=== PATIENT | female | born 1950 | race Caucasian/White ===

== ENCOUNTER 2018-04-29 17:51 | Emergency (ER) | payer MEDICARE, SELFPAY ==
[2018-04-29 17:53] VITALS: BP 116/81; PULSE 86; RESP 12; TEMP 36.8; O2SAT 98
--- NOTE | 2018-04-29 18:04 | DI.REPORT_ITS ---
SYMPTOM/DIAGNOSIS: PAIN OVER TAILBONE SACRUM AND COCCYX: There is mild overlying stool and bowel gas. No fracture is identified. Lateral view is slightly oblique. The disc spaces are well maintained. The S-I joints appear intact. IMPRESSION: No acute abnormality.
--- NOTE | 2018-04-29 18:05 | ED.GENADUL ---
Disposition Clinical Impression: Coccyx pain, Muscle spasm Disposition: HOME Condition: Stable Instructions: Muscle Spasm (ED) Additional Instructions: follow up with your primary care provider if the pain continues this week. Your xrays did not show any broken bones if you have fevers, inability to urinate or abdominal pain return to the emergency department Prescriptions: Cyclobenzaprine [Flexeril] 10 mg PO Q8H PRN PRN #20 tab PRN Reason: Medical Decision Making - Radiology Data Radiology results: report reviewed, image reviewed - Medical Decision Making pt here with reported mechanical fall over 2 weeks ago and pain in coccyx region. Could be fracture, consution, muscle spasm. Will obtain xray to eval for fx. Has no findings on exam to suggest cauda equina, no fevers or chills to suggest SEA and pain started after a fall. No lumbar pain so do not feel these require imaging at this time xray shows no acute findings, stable neuro exam. She feels better with flexeril so suspect msucle spasm vs strain. Will have her f/u with pcp this week if pain continues and return precautions given - Differential Diagnosis muscle spasm, contusion, strain History of Present Illness - General Chief complaint: Nk/Back Pain Stated complaint: UNKNOWN Time Seen by Provider: 04/29/18 17:52 Source: patient Mode of arrival: ambulatory Limitations: no limitations - History of Present Illness Initial comments: 67 yo female comes in with pain over her coccyx. She states she tripped over 2 weeks ago and landed on her buttocks, she has had pain since so came here for an eval. Denies difficulty urinating, sensation changes, abdominal pain, fevers. She has pain with palpation over the coccyx with no palpable deformities, no midline lumbar pain, no saddle anesthesia Complaint: coccyx pain Onset/Timin -: week(s) Location: back Radiation: non-radiation Severity scale (1-10): 7 Quality: aching Consistency: constant Improves with: none Worsens with: none Treatments Prior to Arrival: NSAID - Related Data ClonazePAM [KlonoPIN] 0.5 mg PO BID 04/18/13 Loratadine/Pseudoephedrine [Claritin-D 12 Hour Tablet] 1 tab PO PRN PRN 04/18/13 Albuterol [Ventolin Hfa] 2 puff IH Q4H PRN PRN 04/19/17 Fluticasone Propionate [Flonase Allergy Relief] 9.9 ml NS DAILY 07/07/17 Cyclobenzaprine [Flexeril] 10 mg PO Q8H PRN PRN #20 tab 04/29/18 Ibuprofen 200 mg PO DAILY PRN 04/29/18 Allergies Allergy/AdvReac Type Severity Reaction Status Date / Time acetaminophen [From Tylenol] AdvReac heart acts Unverified 04/29/18 18:00 up naproxen sodium [From Aleve] AdvReac palpatation Unverified 04/29/18 18:00 s NSAIDS (Non-Steroidal AdvReac heart acts Unverified 04/29/18 18:00 Anti-Inflamma up oxycodone [Oxycodone] AdvReac palpatation Unverified 04/29/18 18:00 face flushed propoxyphene HCl AdvReac palpatation Unverified 04/29/18 18:00 [From Darvon] s Review of Systems Constitutional: denies: chills, fever Respiratory: denies: shortness of breath Cardiovascular: denies: chest pain Gastrointestinal: denies: abdominal pain, nausea, vomiting Skin: denies: rash Neurological: denies: headache Comment: All other systems reviewed and negative Past Medical History - Past Medical History Medical history: arthritis, asthma Surgical history: non-contributory - Social History Alcohol use: none Drug use: none General Exam - General Limitations: no limitations General appearance: alert, in no apparent distress - Head Head exam: Present: atraumatic - Eye Eye exam: Present: normal apperance - ENT ENT exam: Present: mucous membranes moist - Neck Neck exam: Present: normal inspection. Absent: tenderness - Respiratory Respiratory exam: Absent: respiratory distress - Cardiovascular Cardiovascular Exam: Present: regular rate - GI/Abdominal GI/Abdominal exam: Present: soft. Absent: tenderness - Back Exam Back exam: Absent: vertebral tenderness - Neurological Exam Neurological exam: Present: alert, oriented X3, reflexes normal. Absent: motor sensory deficit - Psychiatric Psychiatric exam: Present: normal affect - Skin Skin exam: Present: erythema Course Vital Signs - 24 hr 04/29/18 17:53 Temperature 98.2 F Pulse 86 Respiratory 12 Rate Blood Pressure 116/81 Pulse Oximetry 98
[2018-04-29] MEDS: Cyclobenzaprine 10 MG TAB PO ×2 (18:08→18:54)
--- NOTE | 2018-04-29 18:40 | DI.VRAD_ITS ---
EXAM: XR Sacrum and Coccyx, 2 or more Views CLINICAL HISTORY: 67 years old, female; Pain; Pain in coccyx area; Patient HX: Pain over tailbone TECHNIQUE: Frontal and lateral views of the sacrum and coccyx. COMPARISON: No relevant prior studies available. FINDINGS: Sacrum/coccyx: Unremarkable as visualized. No acute fracture. Vertebrae: Visualized lumbar vertebrae are unremarkable. Soft tissues: Unremarkable. IMPRESSION: Normal sacrum and coccyx x-rays. Dictated and Authenticated by: Jon Sim MD. Ordering:LORETTA LIM MD
--- NOTE | 2018-05-01 09:26 | CMPROGNOTE_ITS ---
Care Management Progress Note 05/01-Dr. Medel requested assistance with a PCP (Jamal) f/u in 1-2 weeks for back pain. Referral faxed to [facility] this am.
== END 2018-04-29 18:56 | disposition home or self-care (01) ==
PROVIDERS: Emergency Provider Emergency Medicine; PCP Internal Medicine
DX: M62.830 Muscle spasm of back (principal); M54.5 Low back pain
CPT/HCPCS: 72220; 99283 ×2

== ENCOUNTER 2018-08-16 14:02 | Outpatient (REF) | payer MEDICARE, SELFPAY ==
[2018-08-17 14:45] LABS: Chlamydia Result Negative; GC Result Negative; Specimen Description CERVIX
== END 2018-08-16 14:22 ==
LOC: LBN 14:02
PROVIDERS: PCP Internal Medicine; Visit Provider Obstetrics & Gynecology
DX: R30.0 Dysuria (principal); N89.8 Other specified noninflammatory disorders of vagina; Z11.3 Encounter for screening for infections with a predominantly sexual mode of transmission
CPT/HCPCS: 87491; 87591; 87086

== ENCOUNTER 2019-07-13 11:43 | Outpatient (REF) | payer MEDICARE, SELFPAY ==
[2019-07-13 20:42] LABS: HCT 43.2 % (36.0-46.0); HGB 14.5 g/dL (12.0-15.5); Mean Corp. HGB Concentration 33.6 g/dL (32.0-36.0); Mean Corpuscular Volume 89.4 fL (80-95); Mean Platelet Volume 8.8 fL (8.0-11.0); Platelet Count 322 x1000/uL (130-400); RBC 4.83 m/cumm (4.00-5.20); RBC Distribution Width 12.8 % (11.7-14.6); White Blood Cell Count 4.16 k/cumm (4.4-10.8)
[2019-07-13 21:03] LABS: Anion Gap 8.3 mmol/L (3-11); BUN 10 mg/dL (7-18); CO2 28.7 mmol/L (21.0-32.0); CREATININE 0.68 mg/dL (0.55-1.02); Calcium 9.3 mg/dL (8.5-10.1); Calculated LDL 167 mg/dL; Chloride 104 mmol/L (98-107); Cholesterol 276 mg/dL (50-200); Glucose 90 mg/dL (70-100); HDL Cholesterol 93 mg/dL (40-60); Magnesium 2.2 mg/dL (1.8-2.4); Potassium 4.5 mmol/L (3.5-5.1); Sodium 141 mmol/L (136-145); Triglyceride 80 mg/dL (30-150)
[2019-07-15 16:45] LABS: T3, Total 117 ng/dl (97-169)
[2019-07-16 10:48] LABS: FREE T4 0.82 ng/dL (0.76-1.46)
== END 2019-07-13 12:03 ==
LOC: NCHCN 11:43
PROVIDERS: PCP Internal Medicine; Visit Provider Internal Medicine
DX: R53.83 Other fatigue (principal); E78.79 Other disorders of bile acid and cholesterol metabolism; J30.89 Other allergic rhinitis; R94.6 Abnormal results of thyroid function studies
CPT/HCPCS: 80048; 80061; 85027; 83735; 84439; 84443; 84480

== ENCOUNTER 2019-10-09 09:20 | Emergency (ER) | payer MEDICARE, SELFPAY ==
[2019-10-09] VITALS (12 sets, daily range): BP systolic 138–139; BP diastolic 72–83; PULSE 81–99; RESP 11–24; TEMP 36.9–37.1; O2SAT 97–100
--- NOTE | 2019-10-09 09:48 | DI.RAD_ITS ---
EXAM: XR CHEST 2V PA LATERAL INDICATION: cough, fever, r/o pneumonia. COMPARISON: No exams were available for comparison TECHNIQUE: 2D digital imaging was performed. FINDINGS: The heart is mildly enlarged. The aorta is tortuous. A pulmonary calcification and calcified lymph nodes are consistent with old granulomatous disease. No acute infiltrate, effusion or pulmonary derek a is seen. IMPRESSION: No acute abnormality.
--- NOTE | 2019-10-09 09:52 | W.ED.GENAD ---
Discharge Plan Disposition Patient Disposition: HOME Condition: Improving Discharge Details Chief Complaint: SOB Clinical Impression: Influenza A Primary Care Provider: Simon Berry ED Provider: Lara Weber Home Meds and New Rx's Prescriptions: New oseltamivir [Tamiflu] 75 mg capsule 75 mg PO BID 5 Days Qty: 10 RF: 0 ondansetron HCl [Zofran] 4 mg tablet 4 mg PO Q6H PRN (Reason: nausea and vomiting) Qty: 7 RF: 0 Continued valacyclovir [Valtrex] 500 mg tablet 500 mg PO BID Qty: 12 RF: 0 fluticasone propionate [Flonase Allergy Relief] 9.9 ML spray,suspension 9.9 ml NS DAILY RF: 0 clonazepam 0.5 MG tablet 0.5 mg PO BID RF: 0 Claritin-D 12 Hour 1 EACH tablet extended release 12 hr 1 tab PO PRN PRNRF: 0 albuterol sulfate [Ventolin HFA] 200 PUFF HFA aerosol inhaler 2 puff Inhalation Q4H PRN PRNRF: 0 ibuprofen 200 MG tablet 200 mg PO DAILY PRNRF: 0 cyclobenzaprine 10 MG tablet 10 mg PO Q8H PRN PRNQty: 20 RF: 0 Discharge Instructions Instructions: Influenza (ED) Additional Instructions: Drink plenty of fluids and get plenty of rest. Alternate tylenol and motrin as needed and directed for pain. Follow-up with your primary care doctor in 1 week. Return to the emergency department with any worsening or new concerning symptoms. Discharge Data Discharge Date/Time-TO BE ENTERED AT DEPARTURE: 10/09/19 11:45 Discharge Physician: Lara Weber Medical Decision Making 0590 -- 69-year-old female with a history of asthma, anxiety migraines presents with dry cough, ear pain, sore throat, chest tightness, shortness of breath, headache and body aches for the past 2 days. She states she has been sick with cold-like symptoms since September 21 for which she took 7 tabs of Augmentin left over with some relief of symptoms. She states symptoms return to became much worse yesterday. Admits to feeling feverish and chills but denies any known fever. Vitals within normal limits. Patient appears generally fatigued and uncomfortable but nontoxic. No acute findings on exam. Lungs clear. No meningeal signs. We will obtain a rapid strep, influenza and chest x-ray and give a dose of Toradol, Zofran DuoNeb as well as chest x-ray and reassess. 1035 -- Influenza A positive. Rapid strep negative. Chest x-ray notes pulmonary calcification calcified lymph nodes consistent with old granulomatous disease. Patient is aware of having these findings. Patient felt much better after fluids and meds here. She improved with DuoNeb. We will send home with an inhaler, Tamiflu as well as Zofran. Advised to follow up with the primary care doctor for re-evaluation. Usual and customary return precautions given prior to discharge. Medical Records Medical records reviewed: Yes I reviewed the patient's medical records. Imaging Data Radiologic Study: Radiologist's impression: XR CHEST 2V PA LATERAL INDICATION: cough, fever, r/o pneumonia. COMPARISON: No exams were available for comparison TECHNIQUE: 2D digital imaging was performed. FINDINGS: The heart is mildly enlarged. The aorta is tortuous. A pulmonary calcification and calcified lymph nodes are consistent with old granulomatous disease. No acute infiltrate, effusion or pulmonary edema is seen. IMPRESSION: No acute abnormality. ECG Data Attestation: I personally reviewed and interpreted this ECG (s) as follows: Interpretation: Rate of 80, sinus, no acute ST elevation or depression changes. ME 194. QTc 431. QRS 94. HPI General Mode of arrival: ambulatory. Date/Time Provider Initiated Documentation: 10/09/19 09:20. Limitations to Documentation: no limitations. Information obtained by: patient. History of Present Illness 69 year old F presents to the emergency department with the chief complaint of Dry cough, shortness of breath, chest tightness, ear pain, sore throat, bod, Patient started experiencing this day(s) (2) and it has been constant. No relieving factors improve symptom(s), No exacerbating factors reported . Patient notes chest pain, cough, fever/chills, headaches, loss of appetite, malaise, nausea/vomiting, shortness of breath and weakness. Patient did receive the following treatments prior to arrival, none Related Data Home Medications Medication Instructions Recorded Confirmed Claritin-D 12 Hour 1 tab PO PRN PRN 04/18/13 10/09/19 clonazepam 0.5 mg PO BID 04/18/13 10/09/19 albuterol sulfate [Ventolin HFA] 2 puff INHALATION Q4H PRN PRN 04/19/17 10/09/19 fluticasone propionate [Flonase 9.9 ml NS DAILY 07/07/17 10/09/19 Allergy Relief] cyclobenzaprine 10 mg PO Q8H PRN PRN #20 tab 04/29/18 10/09/19 ibuprofen 200 mg PO DAILY PRN 04/29/18 10/09/19 valacyclovir 500 mg tablet 500 mg PO BID #12 tab 08/16/18 10/09/19 ondansetron HCl [Zofran] 4 mg PO Q6H PRN #7 tab 10/09/19 oseltamivir [Tamiflu] 75 mg PO BID 5 Days #10 cap 10/09/19 Previous Rx's Medication Instructions Recorded cyclobenzaprine 10 mg PO Q8H PRN PRN #20 tab 04/29/18 valacyclovir 500 mg tablet 500 mg PO BID #12 tab 08/16/18 ondansetron HCl [Zofran] 4 mg PO Q6H PRN #7 tab 10/09/19 oseltamivir [Tamiflu] 75 mg PO BID 5 Days #10 cap 10/09/19 Allergies Allergy/AdvReac Type Severity Reaction Status Date / Time acetaminophen [From Tylenol] AdvReac heart acts Unverified 10/09/19 09:25 up naproxen sodium [From Aleve] AdvReac palpatation Unverified 10/09/19 09:25 s NSAIDS (Non-Steroidal AdvReac heart acts Unverified 10/09/19 09:25 Anti-Inflamma up oxycodone [Oxycodone] AdvReac palpatation Unverified 10/09/19 09:25 face flushed propoxyphene HCl AdvReac palpatation Unverified 10/09/19 09:25 [From Darvon] s General Stated Complaint: SOB THA: 3 Review of Systems All systems reviewed & are unremarkable except as noted in HPI and below Constitutional Constitutional: Reports as per HPI, Denies chills and Denies fever(s) Eyes Eyes: Denies blurry vision ENT Ears, Nose, Mouth, and Throat: Denies dizziness, Reports otalgia, Reports sore throat and Denies throat swelling Cardiovascular Cardiovascular: Reports chest pain and Reports dyspnea Respiratory Respiratory: Reports cough and Reports dyspnea Gastrointestinal Gastrointestinal: Denies abdominal pain, Denies diarrhea and Denies vomiting Genitourinary Genitourinary: Denies hematuria and Denies dysuria Musculoskeletal Musculoskeletal: Denies back pain and Denies numbness Integumentary/Breasts Skin/Breast: Denies lesions and Denies rash Neurologic Neurologic: Denies dizziness, Denies focal weakness and Denies numbness Allergic/Immunologic Allergic/Immunologic: Denies throat swelling [facility] Medical History (Updated 10/09/19 @ 10:46 by Lara Weber DO) Anxiety (Chronic) Asthma (Chronic) Migraine (Chronic) Surgical History (Updated 10/09/19 @ 10:11 by Lara Weber DO) H/O section (Chronic) History of bilateral tubal ligation (Acute) Hx of cholecystectomy (Chronic) Social History (Updated 08/16/18 @ 11:31 by Ligia Islas LPN) Smoking/Tobacco Use Status: Never Alcohol Intake: current Drug use: Never Substance use type: does not use Caregiver/Support person: No Foster care: No Household members: family Housing: house Number of Children: 1 Pets and animals: Yes Sexually active: Yes Current gender identity: female What is your relationship status?: Panel score (0-1 are the most socially isolated patients): 0 What type of physical activity do you participate in: walking Seatbelt use: always Working smoke detector in home: Yes Do you feel safe at home: Yes Do you feel safe in your relationship?: Yes History History 3 Para 2 Hx # Term Pregnancies 2 Multiple births Hx # Pregnancies 1 Ectopic pregnancies AB induced Hx Number of Living Children 1 AB spontaneous 1 Exam Const General: cooperative, no acute distress and other (appears mildly fatigued) Orientation: alert and awake HENMT Head: normal to inspection Ears: hearing grossly normal bilaterally, external ears normal and TM's normal bilaterally General nose exam: external nose normal Face and sinus: normal facial exam Mouth: oral mucosae normal Teeth and gingiva: dentition normal Throat: posterior oropharynx normal Eyes General: appearance normal, both eyes and all related structures Eyelids: eyelids normal EOM: EOM intact bilaterally Neck Neck: normal visual inspection Lymphatic: no lymphadenopathy noted Chest Chest: normal inspection of the chest Resp Effort & Inspection: normal respiratory effort and able to speak in complete sentences Auscultation: clear to auscultation bilaterally Cardio Rate: regular rate Rhythm: regular rhythm GI Inspection: normal to inspection Palpation: soft, not firm, no guarding, no hepatosplenomegaly, no masses and nontender Auscultation: normal bowel sounds Skin General skin exam: no rashes or lesions noted Neuro General: alert and awake Cognition: normal cognition Speech: speech normal Gait: normal gait Motor: muscle tone normal throughout Sensory Exam: no sensory deficits noted Extrem General: normal to inspection, full ROM and normal capillary refill Psych Appearance: grossly normal Mental Status: mental status grossly normal Speech and Movement: speech and movement normal Affect: normal affect Thought Process: normal Course Vital Signs Vital signs: Vital Signs Temperature 98.4 F 10/09/19 09:22 Pulse 92 H 10/09/19 09:22 Respiratory Rate 20 10/09/19 09:22 Blood Pressure 139/83 10/09/19 09:22 Pulse Oximetry 97 10/09/19 09:22 Temperature 98.4 F 10/09/19 09:22 Temperature Source Skin 10/09/19 09:22 Pulse 92 H 10/09/19 09:22 Respiratory Rate 20 10/09/19 09:29 Respiratory Effort 10/09/19 09:28 Respiratory Depth Normal 10/09/19 09:29 Respiratory Pattern Normal 10/09/19 09:29 Blood Pressure 139/83 10/09/19 09:22 Blood Pressure Position Sitting 10/09/19 09:22 Pulse Oximetry 97 10/09/19 09:22 Oxygen Delivery Method Room Air 10/09/19 09:22 Oxygen Flow Rate 0 10/09/19 09:22 Pain Level 6 10/09/19 09:22
[2019-10-09] MEDS: Ondansetron 4 MG/2 ML VIAL IVP (09:59)
[2019-10-09] MEDS: Ketorolac 30 MG/ML VIAL IVP (09:59)
[2019-10-09] MEDS: Albuterol/Ipratropium 3 ML UPD VIAL UPD (10:00)
[2019-10-09] MEDS: Normal Saline 1,000 ML 1000 ML IV (10:00)
[2019-10-09] MEDS: Albuterol HFA 8 GM 60 PUFF INH IH (11:36)
== END 2019-10-09 11:45 | disposition home or self-care (01) ==
LOC: ER 11:44
PROVIDERS: Emergency Provider Physician Assistant; PCP Internal Medicine
DX: J10.1 Influenza due to other identified influenza virus with other respiratory manifestations (principal); R05 Cough; R06.02 Shortness of breath
CPT/HCPCS: 87449; 87880; 93005; 94640; 96361; 96374; 96375; 99284; 71046; 87081; 93010; 99285; J1885; J2405; J7620

== ENCOUNTER 2019-11-03 15:47 | Emergency (ER) | payer MEDICARE, SELFPAY ==
[2019-11-03 15:55] VITALS: BP 136/71; PULSE 77; RESP 18; TEMP 36.7; O2SAT 97
--- NOTE | 2019-11-03 16:00 | DI.RAD_ITS ---
EXAM: XR CHEST 2V PA LATERAL CLINICAL HISTORY: cough/fever TECHNIQUE: COMPARISON: XR CHEST 2V PA LATERAL from 10/09/2019 FINDINGS: The heart is not enlarged. Note is again made of calcified intrapulmonary nodule and hilar lymph nod es on the left. No pleural effusion. No acute intrapulmonary consolidation. IMPRESSION: No evidence of acute process.
--- NOTE | 2019-11-03 16:04 | W.ED.GENAD ---
Discharge Plan Disposition Patient Disposition: HOME Condition: Stable Discharge Details Chief Complaint: RespSymp Clinical Impression: Acute viral syndrome Primary Care Provider: Simon Berry ED Provider: Alec Longoria Home Meds and New Rx's Prescriptions: Continued valacyclovir [Valtrex] 500 mg tablet 500 mg PO BID Qty: 12 RF: 0 fluticasone propionate [Flonase Allergy Relief] 9.9 ML spray,suspension 9.9 ml NS DAILY RF: 0 clonazepam 0.5 MG tablet 0.5 mg PO BID RF: 0 Claritin-D 12 Hour 1 EACH tablet extended release 12 hr 1 tab PO PRN PRNRF: 0 ondansetron HCl [Zofran] 4 mg tablet 4 mg PO Q6H PRN (Reason: nausea and vomiting) Qty: 7 RF: 0 albuterol sulfate [Ventolin HFA] 200 PUFF HFA aerosol inhaler 2 puff Inhalation Q4H PRN PRNRF: 0 ibuprofen 200 MG tablet 200 mg PO DAILY PRNRF: 0 Discharge Instructions Instructions: Viral Syndrome (ED) Additional Instructions: Flu was negative. Chest x-ray clear. Rapid strep test negative, culture pending. Rest, plenty of fluids to avoid dehydration. [id number] medications as directed for symptomatic control. Please watch for new or worsening symptoms and return to the ER for any concerns. I do recommend reaching out to your primary care provider on Tuesday for prompt outpatient reevaluation Discharge Data Discharge Date/Time-TO BE ENTERED AT DEPARTURE: 11/03/19 17:50 Medical Decision Making 69-year-old female who reports illness for over 1 month. She initially told me that she was not seen for her illness during that time. But then later tells me that she was diagnosed with the flu on the of last month and treated with Tamiflu. She currently appears well, nontoxic, afebrile, satting well on room air. Differential includes but not excluded to flu, pneumonia, bronchitis, URI, strep/viral pharyngitis, laryngitis. Will obtain rapid strep, flu swab, chest x-ray. Patient comfortable with this plan. Work-up in the ER unremarkable, strep culture pending. Discussed findings with patient. She had no additional questions or concerns and was comfortable with discharge. Encouraged to treat her symptoms with [id number] medications and return to the ER for new or evolving symptoms. Otherwise she will contact her primary care provider Medical Records Medical records reviewed: Yes I reviewed the patient's medical records. Imaging Data Radiologic Study: Attestation: I personally reviewed and interpreted this imaging study as follows: Imaging: X-Ray Radiologist's impression: Stable calcified granuloma in the left lung. No acute process. Lab Data Lab results reviewed: Yes I reviewed the patient's lab results. Lab results narrative: 11/03/19 16:27 Nose Influenza Types A,B Antigen - Final POC strep negative, culture pending HPI General Mode of arrival: ambulatory. Date/Time Provider Initiated Documentation: 11/03/19 15:50. Limitations to Documentation: no limitations. Information obtained by: patient. HPI Narrative: 69-year-old female with a history of asthma, migraines, anxiety presents to the ER today reporting that she has been sick for over 1 month. Initially started out with a dry cough, sinus pressure, and subsequently began to subside however now over the past 3 or 4 days symptoms have worsened. She reports fever, productive cough, body aches, malaise. She reports moderately sore throat. She did take [id number] medications with mild relief. Denies headache, neck pain, chest pain, abdominal pain, nausea, vomiting, diarrhea, constipation, urinary symptoms. She denies recent travel or obvious sick exposure. Related Data Home Medications Medication Instructions Recorded Confirmed Claritin-D 12 Hour 1 tab PO PRN PRN 04/18/13 11/03/19 clonazepam 0.5 mg PO BID 04/18/13 11/03/19 albuterol sulfate [Ventolin HFA] 2 puff INHALATION Q4H PRN PRN 04/19/17 11/03/19 fluticasone propionate [Flonase 9.9 ml NS DAILY 07/07/17 11/03/19 Allergy Relief] ibuprofen 200 mg PO DAILY PRN 04/29/18 11/03/19 valacyclovir 500 mg tablet 500 mg PO BID #12 tab 08/16/18 10/09/19 ondansetron HCl [Zofran] 4 mg PO Q6H PRN #7 tab 10/09/19 11/03/19 Previous Rx's Medication Instructions Recorded valacyclovir 500 mg tablet 500 mg PO BID #12 tab 08/16/18 ondansetron HCl [Zofran] 4 mg PO Q6H PRN #7 tab 10/09/19 Allergies Allergy/AdvReac Type Severity Reaction Status Date / Time acetaminophen [From Tylenol] AdvReac heart acts Unverified 11/03/19 16:00 up naproxen sodium [From Aleve] AdvReac palpatation Unverified 11/03/19 16:00 s NSAIDS (Non-Steroidal AdvReac heart acts Unverified 11/03/19 16:00 Anti-Inflamma up oxycodone [Oxycodone] AdvReac palpatation Unverified 11/03/19 16:00 face flushed propoxyphene HCl AdvReac palpatation Unverified 11/03/19 16:00 [From Darvon] s General Stated Complaint: RespSymp THA: 3 Review of Systems Constitutional Constitutional: Reports chills, Reports fatigue, Reports fever(s) and Reports headache(s) (Migraines, no headache with this illness) Eyes Eyes: Denies eye discharge ENT Ears, Nose, Mouth, and Throat: Denies otalgia and Reports headache(s) (Migraines, no headache with this illness) Cardiovascular Cardiovascular: Denies chest pain Respiratory Respiratory: Reports cough Gastrointestinal Gastrointestinal: Denies abdominal pain, Denies nausea and Denies vomiting Musculoskeletal Musculoskeletal: Reports myalgias Integumentary/Breasts Skin/Breast: Denies rash Neurologic Neurologic: Reports headache(s) (Migraines, no headache with this illness) Endocrine Endocrine: Reports fatigue PFSH Medical History Anxiety (Chronic) Asthma (Chronic) Migraine (Chronic) Surgical History H/O section (Chronic) History of bilateral tubal ligation (Acute) Hx of cholecystectomy (Chronic) Social History Smoking/Tobacco Use Status: Never Alcohol Intake: current Alcohol Intake frequency: holidays/special occasions only Drug use: Never Substance use type: does not use Caregiver/Support person: No Foster care: No Household members: family Housing: house Number of Children: 1 Pets and animals: Yes Sexually active: Yes Current gender identity: female What is your relationship status?: Panel score (0-1 are the most socially isolated patients): 0 What type of physical activity do you participate in: walking Seatbelt use: always Working smoke detector in home: Yes Do you feel safe at home: Yes Do you feel safe in your relationship?: Yes History History 3 Para 2 Hx # Term Pregnancies 2 Multiple births Hx # Pregnancies 1 Ectopic pregnancies AB induced Hx Number of Living Children 1 AB spontaneous 1 Exam Const General: cooperative, healthy appearing, comfortable and no acute distress Orientation: alert and awake [facility] Head: normal to inspection, normocephalic and atraumatic Mouth: moist mucous membranes Throat: posterior oropharynx normal Eyes General: appearance normal, both eyes and all related structures Eyelids: eyelids normal Conjunctivae: conjunctivae normal Sclera: sclerae normal Neck Neck: normal visual inspection, full ROM, no lymphadenopathy, no meningeal signs, trachea midline and supple Resp Effort & Inspection: normal respiratory effort and able to speak in complete sentences Auscultation: clear to auscultation bilaterally Cardio Rate: regular rate Rhythm: regular rhythm GI Palpation: soft and nontender Skin General skin exam: no rashes or lesions noted Neuro General: alert, awake, moves all extremities and no focal motor deficits Sensory Exam: no sensory deficits noted Psych Appearance: grossly normal Mental Status: mental status grossly normal Course Vital Signs Vital signs: Vital Signs Temperature 36.7 C 11/03/19 15:55 Pulse 77 11/03/19 15:55 Respiratory Rate 18 11/03/19 15:55 Blood Pressure 136/71 11/03/19 15:55 Pulse Oximetry 97 11/03/19 15:55 Temperature 36.7 C 11/03/19 15:55 Temperature Source Oral 11/03/19 15:55 Pulse 77 11/03/19 15:55 Respiratory Rate 18 11/03/19 15:55 Respiratory Effort Non-Labored 11/03/19 15:58 Blood Pressure 136/71 11/03/19 15:55 Blood Pressure Position Supine 11/03/19 15:55 Pulse Oximetry 97 11/03/19 15:55 Oxygen Delivery Method Room Air 11/03/19 15:55 Oxygen Flow Rate 0 11/03/19 15:55 Pain Level 7 11/03/19 15:55
--- NOTE | 2019-11-03 17:16 | DI.VRAD_ITS ---
PROCEDURE INFORMATION: Exam: XR Chest, 2 Views Exam date and time: 11/03/2019 4:44 PM Age: 69 years old Clinical indication: Chest pain TECHNIQUE: Imaging protocol: XR of the chest Views: 2 views. COMPARISON: CR XR CHEST 2V PA LATERAL 10/09/2019 10:34 AM FINDINGS: Lungs: Stable calcified granuloma in the left lung. No focal consolidation Pleural space: Unremarkable. No pleural effusion. No pneumothorax. Heart/Mediastinum: Stable calcified nodes in the left hilum Vasculature: Tortuous aorta Bones/joints: Unremarkable. IMPRESSION: No acute process Dictated and Authenticated by: Keven Ellis MD. Ordering:OBEY Michael MD
[2019-11-03 17:37] VITALS: BP 128/92; PULSE 69; RESP 16; TEMP 36.5; O2SAT 98
== END 2019-11-03 17:50 | disposition home or self-care (01) ==
PROVIDERS: Emergency Provider Physician Assistant; PCP Internal Medicine
DX: R50.9 Fever, unspecified (principal); R05 Cough; R53.81 Other malaise; B34.9 Viral infection, unspecified; J02.8 Acute pharyngitis due to other specified organisms
CPT/HCPCS: 87449; 87880; 99283; 71046; 99285

== ENCOUNTER 2020-10-20 18:55 | Emergency (ER) | payer MEDICARE, SELFPAY ==
[2020-10-20] VITALS (41 sets, daily range): BP systolic 108–160; BP diastolic 56–93; PULSE 56–86; RESP 9–30; TEMP 37.1; O2SAT 94–99
--- NOTE | 2020-10-20 19:00 | RT.EKG_ITS ---
APPROVED REPORT Exam: Resting ECG Patient Location: E HR:68 bpm ECG Measurements Heart Rate 68 AXIS IN 199 P 40 QRSd 95 QRS -45 QT 408 T 13 QTc 434 Conclusion Sinus rhythm.ascicular block Low voltage, precordial leads
--- NOTE | 2020-10-20 19:15 | DI.RAD_ITS ---
EXAM: XR PORTABLE CHEST AP CLINICAL HISTORY: cough, malaise TECHNIQUE: 2D digital imaging was performed. COMPARISON: CR,XR XR CHEST 2V PA LATERAL from 11/03/2019 FINDINGS: MEDIASTINUM: Stable calcified left mediastinal lymph node. HEART: Normal. PULMONARY VASCULATURE: Normal. LUNGS: Clear. There is a stable left lung calcified granuloma. PLEURAL SPACE: No pleural effusion or pneumothorax. BONE:Within normal limits for the patient's age. OTHER FINDINGS:Normal. IMPRESSION: No acute pulmonary findings. DATA REPOSITORY: RADIATION DOSE DELIVERED:
--- NOTE | 2020-10-20 19:23 | ED.GENADUL_ITS ---
Discharge Plan Disposition Patient Disposition: HOME Condition: Improving Discharge Details Clinical Impression: Acute UTI Primary Care Provider: Simon Berry ED Provider: George Lozano Home Meds and New Rx's Prescriptions: New cephalexin 500 mg capsule 500 mg PO BID 4 Days Qty: 8 RF: 0 Continued fluticasone propionate [Flonase Allergy Relief] 9.9 ML spray,suspension 9.9 ml NS DAILY RF: 0 clonazepam 0.5 MG tablet 0.5 mg PO BID RF: 0 albuterol sulfate [Ventolin HFA] 200 PUFF HFA aerosol inhaler 2 puff Inhalation Q4H PRN PRNRF: 0 ibuprofen 200 MG tablet 200 mg PO DAILY PRNRF: 0 Discharge Instructions Additional Instructions: Your work-up today included laboratories with cardiac enzymes, chest x-ray and pending COVID-19 testing. Please continue to quarantine at home until your Covid test has resulted. Small, frequent sips of fluids to maintain hydration. Take antibiotics as prescribed until finished for a total of 5 days. May continue your prescribed medications including ibuprofen as needed for aches, pains. Stand Alone Forms: PENDING COVID-19 TESTING Discharge Data Discharge Date/Time-TO BE ENTERED AT DEPARTURE: 10/20/20 22:30 Medical Decision Making 70-year-old female presents from home complaining of day 2 of general fatigue, body ache, cough with intermittent shortness of breath. She is not had any travel or known sick contacts. She arrives to the ER afebrile oxygenating 98 to 99% on room air. Differential diagnosis includes viral syndrome, pneumonitis, occult pneumonia, pleurisy, dehydration or electrolyte abnormality, and may simply be a general viral syndrome. IV access established, screening labs including EKG obtained and patient referred for chest x-ray. Chest x-ray does not reveal acute process. She has old unchanged calcifications present. Labs: White count 5, hematocrit 40, platelets 276. Sodium 140, potassium 3.7, chloride 105, bicarb 26, BUN 12, creatinine 0.8, unremarkable LFTs and troponin negative. Pt observed on a telephone collector, repeat troponin obtained Urinalysis with leuk esterase and white blood cells, may be early UTI and culture is pending. I will elect to treat with a course of antibiotics. HPI General Mode of arrival: ambulatory . Date/Time Provider Initiated Documentation: 10/20/20 18:57 . Limitations to Documentation: no limitations . Information obtained by: patient . History of Present Illness 70 year old F presents to the emergency department with the chief complaint of Cough, shortness of breath, chest ache., described as moderate, Quality is described as dull, and is localized to the chest. Patient reports no radiation. Patient started experiencing this hour(s) and it has been constant. No relieving factors improve symptom(s), No exacerbating factors reported . Patient did receive the following treatments prior to arrival, none Related Data Home Medications Medication Instructions Recorded Confirmed clonazepam 0.5 mg PO BID 04/18/13 10/20/20 albuterol sulfate [Ventolin HFA] 2 puff INHALATION Q4H PRN PRN 04/19/17 10/20/20 fluticasone propionate [Flonase 9.9 ml NS DAILY 07/07/17 10/20/20 Allergy Relief] ibuprofen 200 mg PO DAILY PRN 04/29/18 10/20/20 cephalexin 500 mg PO BID 4 Days #8 cap 10/20/20 Previous Rx's Medication Instructions Recorded cephalexin 500 mg PO BID 4 Days #8 cap 10/20/20 Allergies Allergy/AdvReac Type Severity Reaction Status Date / Time acetaminophen [From Tylenol] AdvReac heart acts Unverified 11/03/19 16:00 up naproxen sodium [From Aleve] AdvReac palpatation Unverified 11/03/19 16:00 s NSAIDS (Non-Steroidal AdvReac heart acts Unverified 11/03/19 16:00 Anti-Inflamma up oxycodone [Oxycodone] AdvReac palpatation Unverified 11/03/19 16:00 face flushed propoxyphene HCl AdvReac palpatation Unverified 11/03/19 16:00 [From Darvon] s General Stated Complaint: RespSymp THA: 3 Review of Systems Narrative: No known sick contacts. No fever or production of sputum. [place] chilled, body ache, and general fatigue. [facility] Medical History (Updated 10/20/20 @ 23:02 by George Lozano MD) Anxiety Asthma Migraine Surgical History H/O section History of bilateral tubal ligation Hx of cholecystectomy Social History Smoking/Tobacco Use Status: Never Smoking risk assessment performed?: Yes Alcohol Intake: current Alcohol Intake frequency: holidays/special occasions only Drug use: Never Substance use type: does not use Caregiver/Support person: No Foster care: No Household members: family Housing: house Number of Children: 1 Pets and animals: Yes Sexually active: Yes Current gender identity: female What is your relationship status?: Panel score (0-1 are the most socially isolated patients): 0 What type of physical activity do you participate in: walking Seatbelt use: always Working smoke detector in home: Yes Do you feel safe at home: Yes Do you feel safe in your relationship?: Yes History History 3 Para 2 Hx # Term Pregnancies 2 Multiple births Hx # Pregnancies 1 Ectopic pregnancies AB induced Hx Number of Living Children 1 AB spontaneous 1 Exam Narrative Exam Narrative: GEN: awake, alert, oriented 3. Pleasant, well groomed, interactive. HEAD: Normocephalic, atraumatic ENT: Mucous membranes moist, oropharynx unremarkable, External ear exam unremarkable EYES: PERRL, EOMI NECK: Full ROM, no ELKE, no menigismus CHEST/RESP: Nontender, clear to auscultation bilateral, no wheeze/rhonchi/rales CARDIOVASCULAR: RRR, no murmur, rub radha. 2+ Rad pulse bilateral ABDOMEN: Soft, nontender, no mass. +Bowel sounds EXT: Full ROM, no edema, no rash Neuro: Grossly normal neurologic exam, conversant, interactive. Psych: Speech fluent, thoughts congruent, affect normal Course Vital Signs Vital signs: Vital Signs Temperature 37.1 C 10/20/20 19:05 Pulse 74 10/20/20 19:05 Respiratory Rate 17 10/20/20 19:05 Blood Pressure 160/93 H 10/20/20 19:05 Pulse Oximetry 98 10/20/20 19:05 Temperature 37.1 C 10/20/20 19:05 Temperature Source Skin 10/20/20 19:05 Pulse 74 10/20/20 19:05 Respiratory Rate 17 10/20/20 19:05 Respiratory Effort 10/20/20 19:09 Blood Pressure 160/93 H 10/20/20 19:05 Blood Pressure Position Sitting 10/20/20 19:05 Pulse Oximetry 98 10/20/20 19:05 Oxygen Delivery Method Room Air 10/20/20 19:05 Oxygen Flow Rate 0 10/20/20 19:05 Pain Level 5 10/20/20 19:05
[2020-10-20] MEDS: Ibuprofen 200 MG TAB PO (20:04)
[2020-10-20] MEDS: Normal Saline 1,000 ML 1000 ML IV (20:11)
--- NOTE | 2020-10-20 20:20 | DI.VRAD_ITS ---
PROCEDURE INFORMATION: Exam: XR Chest, 1 View Exam date and time: 10/20/2020 7:52 PM Age: 70 years old Clinical indication: Cough and other: Malaise; Patient HX: Cough, weakness, malaise TECHNIQUE: Imaging protocol: XR of the chest Views: 1 view. COMPARISON: CR XR CHEST 2V PA LATERAL 11/03/2019 4:43 PM FINDINGS: Lungs: No pulmonary vascular congestion or consolidation. Stable calcified granuloma in the mid left lung. Small curvilinear density overlying the right lateral 8th posterior rib appears to represent confluence of overlying structures or nipple shadow. Pleural spaces: Unremarkable. No pleural effusion. No pneumothorax. Heart/Mediastinum: The cardiomediastinal silhouette is within normal limits without cardiac enlargement. Stable calcified lymph node in the left hilum. Bones/joints: No acute findings. IMPRESSION: No acute findings. Dictated and Authenticated by: Tricia Thompson MD. Ordering:LILIAN Vazquez MD
[2020-10-20 20:27] LABS: Abs Immature Grans 0.01 10^3/uL (0.0-0.06); Absolute Basophil Count 0.06 10^3/uL (0.0-0.2); Absolute Eosinophil Count 0.15 10^3/uL (0.0-0.7); Absolute Lymphocyte Count 1.41 10^3/uL (1.2-3.4); Absolute Monocyte Count 0.42 10^3/uL (0.1-0.8); Eosinophils % 2.6; HCT 40.6 % (36.0-46.0); HGB 13.8 g/dL (11.2-15.7); Immature Grans % 0.2; Lymphocytes % 24.5; MCH 30.1 pg (27.0-33.0); MCV 88.6 fL (80-95); MPV 8.5 fL (8.0-11.0); Monocytes % 7.3; Neutrophils % 64.4; Nucleated RBC 0 %; Platelet Count 276 10^3/uL (130-400); RBC 4.58 10^6/uL (3.93-5.22); RDW 11.8 % (11.7-14.6); RDW-SD 37.7 fL; WBC 5.75 10^3/uL (4.4-10.8)
[2020-10-20 20:49] LABS: Troponin I < 0.05 ng/mL (<0.06)
[2020-10-20 21:00] LABS: D-Dimer 366 ng/mlFEU (<500)
--- NOTE | 2020-10-20 21:02 | NUR.NOTE ---
Nursing Note: States she feels much better after the fluid and motrin.
[2020-10-20 21:47] LABS: ALT 26 U/L (14-59); AST 21 U/L (15-37); Albumin 3.6 g/dL (3.4-5.0); Alkaline Phosphatase 91 U/L (46-116); Anion Gap 8.6 mmol/L (3-11); BUN 12 mg/dL (7-18); Bilirubin, Total 0.4 mg/dL (0.2-1.0); CO2 26.4 mmol/L (21.0-32.0); CREATININE 0.8 mg/dL (0.55-1.02); Calcium 8.9 mg/dL (8.5-10.1); Chloride 105 mmol/L (98-107); Glucose 99 mg/dL (74-106); Potassium 3.7 mmol/L (3.5-5.1); Sodium 140 mmol/L (136-145); Total Protein 7.3 g/dL (6.4-8.2)
[2020-10-20 22:22] LABS: Bilirubin Negative (Negative); Blood Negative (Negative); Clarity Clear (Clear); Glucose Negative (Negative); Ketones Negative (Negative); Leukocyte Esterase Small (Negative); Nitrite Negative (Negative); Specific Gravity 1.015 (1.005-1.025); Urobilinogen 0.2 EU/dL (Up TO 0.2)
[2020-10-20 22:30] LABS: Bacteria Negative HPF (Negative); C & S Indicated? Yes; Casts Negative LPF (Negative); Crystals Negative HPF (Negative); Epithelial Cells Rare HPF (Negative); Mucus Negative (Negative); RBC Negative HPF (0-2)
[2020-10-20 22:51] LABS: Troponin I < 0.05 ng/mL (<0.06)
[2020-10-20] MEDS: Cephalexin 500 MG CAP, 2 CAPS/BTL PO (23:11)
[2020-10-22 15:17] LABS: COVID-19 RT-PCR UVMMC Result Negative (Negative)
--- NOTE | 2020-10-22 15:43 | NUR.NOTE ---
Nursing Note: Tisha notified of Negative Covid test result. Verbalizes understanding.
== END 2020-10-20 22:30 | disposition home or self-care (01) ==
PROVIDERS: Emergency Provider Emergency Medicine; PCP Internal Medicine
DX: N39.0 Urinary tract infection, site not specified (principal); M79.10 Myalgia, unspecified site; R05 Cough; Z03.818 Encounter for observation for suspected exposure to other biological agents ruled out
CPT/HCPCS: 36415; 80053; 93005; 96360; 99285; U0003; U0005; 71045; 81003; 81015; 84484; 85025; 85379; 87086; 93010

== ENCOUNTER 2025-05-08 17:56 | Outpatient (REF) | payer MEDICARE, SELFPAY | END 2025-05-08 17:57 | disposition home or self-care (01) | LOC: LBN 17:56 | PROVIDERS: PCP Internal Medicine; Visit Provider Obstetrics & Gynecology | DX: N89.8 Other specified noninflammatory disorders of vagina (principal) | CPT/HCPCS: 87480; 87510; 87660 ==

== ENCOUNTER 2025-05-16 14:17 | Outpatient (REF) | payer MEDICARE, SELFPAY | END 2025-05-16 14:18 | disposition home or self-care (01) | LOC: LBN 14:17 | PROVIDERS: PCP Internal Medicine; Visit Provider Obstetrics & Gynecology | DX: N89.8 Other specified noninflammatory disorders of vagina (principal) | CPT/HCPCS: 87480; 87510; 87660 ==